=== PATIENT | female | born 2005 | race Caucasian/White ===

== ENCOUNTER 2024-04-01 13:02 | Emergency (ER) | payer OTHER, MEDICAID, SELFPAY ==
[2024-04-01 13:08] VITALS: BP 133/80; PULSE 73; RESP 14; TEMP 36.3; O2SAT 99; BMI 22.1
--- NOTE | 2024-04-01 13:39 | ED.FEMALEGU ---
HPI - Female Genitourinary <Justine Jacobo PA-C - Last Filed: 04/01/24 16:08> General Chief complaint: Urogenital-Female Stated complaint: Abd Pain, Dark Urine Time Seen by Provider: 04/01/24 13:16 Source: patient Mode of arrival: Ambulatory History of Present Illness HPI Narrative: 18yo F w/hx of anxiety, depression, PTSD, possible endometriosis, frequent UTIs, fentanyl use in remission, anemia, anorexia and bulimia presents with concern for multiple complaints. Patient states that she has been overall feeling fatigued for weeks especially the last 3 weeks. Had dark yellow sometimes very dark and smelly urine despite drinking copious water and a sensation of incomplete emptying after peeing that has been going on for few months. She states she sometimes has crampy pains in between her periods which he says are low down intermittent and not severe. She endorses long menses and is not currently on control, her last period ended 3 days ago. Patient did believe that she had a urinary tract infection states that she was worked up in the last month when she had anxiety with asthma and was given Ativan and ended up feeling she needed to be in a psych aguilar due to concern she would relapse and start using fentanyl again. At that time she says she was told that her urine did not show a UTI but that she ?just had kidney damage from 2 years of fentanyl use?. But was not told anything further about the state of her kidneys. Additionally patient states that she was previously told that her thyroid levels were abnormal but an additional lab needed to be checked to determine if she was hyperthyroid or not. She states this was never done. She also states that she has a problem with syncopal episodes where she passes out for about 2 minutes occasioanlly after exertion (often after sex) but does not think that she has any skipped beats or fast heart rate, chest pain or shortness of breath associated with this. She says this has not increased in frequency. It has been a problem for years. She endorses nausea but this has been chronic for her, states that she has been doing better with eating and has actually been gaining some weight recently. She also states that ever since she stopped using fentanyl she has had irregular stools the alternate between constipation and frequent loose stools. This has not changed recently. She denies fevers, chills, vomiting, watery diarrhea or other symptoms. She did not have insurance until recently and is working on getting established with a primary care provider. Related Data Previous Rx's Medication Instructions Recorded cefdinir 300 mg capsule 300 mg PO Q12H UTI with kidney 04/01/24 involvement 7 days #14 caps Allergies Allergy/AdvReac Type Severity Reaction Status Date / Time prednisone Allergy Intermediate Wheezing Verified 04/01/24 13:11 latex Allergy Unknown Verified 04/01/24 13:11 Review of Systems <Justine Jacobo PA-C - Last Filed: 04/01/24 16:08> Review of Systems Narrative: See HPI Patient History <Justine Jacobo PA-C - Last Filed: 04/01/24 16:08> tobacco type: vaping alcohol intake frequency: 0-2 drinks per day Substance Use Type: marijuana Exam <Justine Jacobo PA-C - Last Filed: 04/01/24 16:08> Narrative Exam Narrative: GENERAL: [18] year old patient appears stated age. Pleasant, Healthy-appearing, multiple tattoos. Well-developed patient, in mild distress. HEAD: Atraumatic. Normocephalic. EYES: Pupils equal round and reactive. Extraocular motions intact. No scleral icterus. No injection or drainage. ENT: Nose without bleeding, purulent drainage. Airway patent. NECK: Trachea midline. Non tender CARDIOVASCULAR: Regular rate and rhythm without murmurs, gallops, or rubs. RESPIRATORY: Clear to auscultation. Breath sounds equal bilaterally. No wheezes, rales, or rhonchi. GASTROINTESTINAL: There is left flank tenderness with palpation and prominent left flank tenderness with percussion. Abdomen soft, there is a left upper quadrant tenderness, mild suprapubic discomfort, otherwise non-tender, nondistended. EXTREMITIES: No edema or joint tenderness. BACK: Nontender without deformity or crepitance. Left CVA tenderness, otherwise No flank tenderness. NEURO: AOx3. SKIN: No rash or erythema of visible areas Initial Vital Signs Initial Vital Signs: Vital Signs Temperature 97.3 F L 04/01/24 13:08 Pulse Rate 73 04/01/24 13:08 Respiratory Rate 14 04/01/24 13:08 Blood Pressure 133/80 04/01/24 13:08 Pulse Oximetry 99 04/01/24 13:08 Oxygen Delivery Method Room Air 04/01/24 13:08 <John Lopez DO - Last Filed: 04/01/24 16:32> Initial Vital Signs Initial Vital Signs: Vital Signs Temperature 97.3 F L 04/01/24 13:08 Pulse Rate 73 04/01/24 13:08 Respiratory Rate 14 04/01/24 13:08 Blood Pressure 133/80 04/01/24 13:08 Pulse Oximetry 99 04/01/24 13:08 Oxygen Delivery Method Room Air 04/01/24 13:08 Course <Justine Jacobo PA-C - Last Filed: 04/01/24 16:08> Course Course Narrative: Spoke with social work who has not yet been able to see the patient, noting concern that the patient does need a PCP for follow up and would like her to get in to be seen soon rather than waiting up to 6 months. Social work is happy to work with her on this and would prefer to call her tomorrow, will leave a face sheet for the patient in social work program coordinator Kesha's box so she can contact the patient tomorrow regarding setting up a PCP appointment. [id number] Orders Ordered: ED Orders 04/01/24 13:36 Test Urine Stat Urinalysis and Microscopic Stat 04/01/24 13:41 CBC Auto Diff [Complete Blood Count AUTO DIFF] Stat CMP [Comprehensive Metabolic Panel] Stat Free T3, Triiodothyronine Free Stat Free T4, Direct Thyroxine Stat Lipase Stat TSH [Thyroid Stimulating Hormone] Stat 04/01/24 13:46 Consult to [facility] [place] - Professional Organizer Stat Discontinued Medications Ceftriaxone Sodium 1,000 mg/ (Sodium Chloride) 100 mls @ 200 mls/hr IV NOW ONE Stop: 04/01/24 14:33 Last Infusion: 04/01/24 15:15 Dose: Infused Documented By: Admin: 04/01/24 14:39 Dose: 200 mls/hr Documented By: SUSU Vital Signs Vital signs: Vital Signs - 8 hr 04/01/24 13:08 Temperature 97.3 F L Pulse Rate 73 Respiratory Rate 14 Blood Pressure 133/80 Pulse Oximetry 99 Oxygen Delivery Method Room Air <John Lopez DO - Last Filed: 04/01/24 16:32> Orders Ordered: ED Orders 04/01/24 13:36 Test Urine Stat Urinalysis and Microscopic Stat 04/01/24 13:41 CBC Auto Diff [Complete Blood Count AUTO DIFF] Stat CMP [Comprehensive Metabolic Panel] Stat Free T3, Triiodothyronine Free Stat Free T4, Direct Thyroxine Stat Lipase Stat TSH [Thyroid Stimulating Hormone] Stat 04/01/24 13:46 Consult to [facility] [place] - Professional Organizer Stat Discontinued Medications Ceftriaxone Sodium 1,000 mg/ (Sodium Chloride) 100 mls @ 200 mls/hr IV NOW ONE Stop: 04/01/24 14:33 Last Infusion: 04/01/24 15:15 Dose: Infused Documented By: Admin: 04/01/24 14:39 Dose: 200 mls/hr Documented By: SUSU Vital Signs Vital signs: Vital Signs - 8 hr 04/01/24 13:08 Temperature 97.3 F L Pulse Rate 73 Respiratory Rate 14 Blood Pressure 133/80 Pulse Oximetry 99 Oxygen Delivery Method Room Air MDM - Female Genitourinary <Justine Jacobo PA-C - Last Filed: 04/01/24 16:08> Differential Diagnosis Differential diagnosis: Likely urinary tract infection, cystitis and other (pyelonephritis, fatigue, flank pain, needs PCP) Medical Records Attestation: I reviewed the patient's medical records. Lab Data Attestation: I reviewed the patient's lab results. 04/01/24 13:41 04/01/24 13:41 Labs: Lab Results 04/01/24 04/01/24 Range/Units 13:36 13:41 WBC 5.9 (4.5-11.0) X10^3/uL RBC 4.58 (4.0-5.2) X10^6/uL Hgb 14.1 (12.0-16.0) g/dL Hct 41.4 (36-46) % MCV 90.5 (80-100) fL MCH 30.9 (26-34) PG MCHC 34.2 (30-36) % RDW 13.3 (11.6-14.8) % Plt Count 214 (150-400) X10^3/uL Neut % (Auto) 55.2 (50-75) % Lymph % (Auto) 35.9 (25-40) % Early % (Auto) 7.0 (3-14) % Eos % (Auto) 1.4 L (2-4) % Baso % (Auto) 0.5 (0-2) % Neut # (Auto) 3200 (3138-4553) /uL Lymph # (Auto) 2100 (9697-7453) /uL Early # (Auto) 400 (0-900) /uL Eos # (Auto) 100 (0-450) /uL Baso # (Auto) 0 (0-100) /uL Sodium 139 (137-145) mmol/L Potassium 4.1 (3.4-5.1) mmol/L Chloride 106 (98-107) mmol/L Carbon Dioxide 25 (22-32) mmol/L BUN 10 (7-17) mg/dL Creatinine 0.83 (0.52-1.04) mg/dL Estimated GFR > 60 (>60) mL/min BUN/Creatinine Ratio 12.0 (6-22) Glucose 90 (70-100) mg/dL Calcium 9.4 (8.4-10.2) mg/dL Total Bilirubin 0.9 (0.2-1.3) mg/dL AST 26 (14-36) IU/L ALT 12 (<35) IU/L Alkaline Phosphatase 66 (38-126) U/L Total Protein 7.6 (6.3-8.2) g/dL Albumin 4.8 (3.5-5.0) g/dL Globulin 2.8 (1.7-4.1) g/dL Albumin/Globulin Ratio 1.7 (1.0-2.8) Lipase 63 (23-300) U/L TSH 0.204 L (0.47-4.68) uIU/mL Free T4 1.05 (0.78-2.19) ng/dL Free T3 3.77 (2.77-5.27) pg/mL Urine Color Yellow Urine Appearance Sl cloudy Urine pH 8.0 (4.5-8.0) Ur Specific [place] 1.015 (1.000-1.035) Urine Protein Trace H (Negative) Urine Glucose (UA) Negative (Negative) g/dL Urine Ketones Negative (NEGATIVE) Urine Occult Blood Trace-intact (Negative) Urine Nitrate Negative (Negative) Urine Bilirubin Negative (NEGATIVE) Urine Urobilinogen 1.0 (0.2) E.U./dL Ur Leukocyte Esterase Trace H (NEGATIVE) Urine RBC None seen (0-5/HPF) Urine WBC 1-5/hpf (0-5/HPF) Ur Squamous Epith Cells 10-30 /hpf H (0-5/HPF) Urine Bacteria Many (>30) H (None) Ur Culture Indicated? Cult not indicated Vol Urine Centrifuged 10ml (spun) Urine Test Negative (Negative) MDM Narrative Medical decision making narrative: 18-year-old woman presents with multiple concerns including possible UTI, abdominal pains, concern for thyroid problem, fatigue, and chronic syncopal episodes after exertion. Patient was well-appearing today but her exam is concerning for flank tenderness on the left and left upper quadrant tenderness. Labs are obtained for further evaluation including CBC CMP lipase, TSH, urine , urine micro. Urine is consistent with a urinary tract infection, given patient's significant flank tenderness and some left upper quadrant tenderness I suspect her kidney is inflamed and she has had a smoldering kidney infection. Her labs otherwise look good, kidney function is normal appearing, no increased lipase no leukocytosis negative . Patient's TSH was low and Free T4 is in the normal range, T3 is pending at time of patient discharge, possibly patient has subclinical hyperthyroidism. She will need further evaluation for this but did discuss with the patient, do not anticipate starting her on any medications today from the emergency department but encouraged her to have close follow-up with PCP regarding her thyroid studies and possible additional evaluation such as ultrasound. 1 g ceftriaxone IV today in the emergency department for UTI with kidney involvement and patient is placed on cefdinir for 7 day course advised to follow up closely with PCP. Social work was consulted from the emergency department for assistance in helping the patient to obtain PCP/get scheduled. <John Lopez, - Last Filed: 04/01/24 16:32> Lab Data Labs: Lab Results 04/01/24 04/01/24 Range/Units 13:36 13:41 WBC 5.9 (4.5-11.0) X10^3/uL RBC 4.58 (4.0-5.2) X10^6/uL Hgb 14.1 (12.0-16.0) g/dL Hct 41.4 (36-46) % MCV 90.5 (80-100) fL MCH 30.9 (26-34) PG MCHC 34.2 (30-36) % RDW 13.3 (11.6-14.8) % Plt Count 214 (150-400) X10^3/uL Neut % (Auto) 55.2 (50-75) % Lymph % (Auto) 35.9 (25-40) % Early % (Auto) 7.0 (3-14) % Eos % (Auto) 1.4 L (2-4) % Baso % (Auto) 0.5 (0-2) % Neut # (Auto) 3200 (2803-3678) /uL Lymph # (Auto) 2100 (7652-1676) /uL Early # (Auto) 400 (0-900) /uL Eos # (Auto) 100 (0-450) /uL Baso # (Auto) 0 (0-100) /uL Sodium 139 (137-145) mmol/L Potassium 4.1 (3.4-5.1) mmol/L Chloride 106 (98-107) mmol/L Carbon Dioxide 25 (22-32) mmol/L BUN 10 (7-17) mg/dL Creatinine 0.83 (0.52-1.04) mg/dL Estimated GFR > 60 (>60) mL/min BUN/Creatinine Ratio 12.0 (6-22) Glucose 90 (70-100) mg/dL Calcium 9.4 (8.4-10.2) mg/dL Total Bilirubin 0.9 (0.2-1.3) mg/dL AST 26 (14-36) IU/L ALT 12 (<35) IU/L Alkaline Phosphatase 66 (38-126) U/L Total Protein 7.6 (6.3-8.2) g/dL Albumin 4.8 (3.5-5.0) g/dL Globulin 2.8 (1.7-4.1) g/dL Albumin/Globulin Ratio 1.7 (1.0-2.8) Lipase 63 (23-300) U/L TSH 0.204 L (0.47-4.68) uIU/mL Free T4 1.05 (0.78-2.19) ng/dL Free T3 3.77 (2.77-5.27) pg/mL Urine Color Yellow Urine Appearance Sl cloudy Urine pH 8.0 (4.5-8.0) Ur Specific [place] 1.015 (1.000-1.035) Urine Protein Trace H (Negative) Urine Glucose (UA) Negative (Negative) g/dL Urine Ketones Negative (NEGATIVE) Urine Occult Blood Trace-intact (Negative) Urine Nitrate Negative (Negative) Urine Bilirubin Negative (NEGATIVE) Urine Urobilinogen 1.0 (0.2) E.U./dL Ur Leukocyte Esterase Trace H (NEGATIVE) Urine RBC None seen (0-5/HPF) Urine WBC 1-5/hpf (0-5/HPF) Ur Squamous Epith Cells 10-30 /hpf H (0-5/HPF) Urine Bacteria Many (>30) H (None) Ur Culture Indicated? Cult not indicated Vol Urine Centrifuged 10ml (spun) Urine Test Negative (Negative) Discharge Plan Departure Patient Disposition: Home Clinical Impression: Infection of kidney, Abnormal laboratory test result Urinary tract infection Qualifiers: Urinary tract infection type: acute cystitis Hematuria presence: with hematuria Qualified Code(s): N30.01 - Acute cystitis with hematuria Activity Restrictions/Additional Instructions: *You have been diagnosed with [UTI affecting the kidney on the left, abnormal thyroid lab] *What to do: *Please continue to take your regular medications as directed. [1 ] New medication prescriptions sent to your pharmacy: [Cefdinir ] [ ] New medication written as a paper prescription [ ] No new medications given *Please follow up with your primary care provider in 2-3 days, call for an appointment. Let them know you were seen in the Emergency Department and that we ask that you be seen in follow up. We will electronically transmit a record of today's note if your PCP is in our system. Your urine today was consistent with a urinary tract infection your symptoms also fit with this you did have some flank tenderness over your left kidney and I suspect her kidney is affected. We gave you IV antibiotics today in the emergency department to jump start treatment for this but I also prescribed oral antibiotics that you should take for the next 7 days also. Hopefully this is improving her symptoms. Your other labs today looked good except your thyroid lab was low outside the normal range, this can sometimes indicate a subclinical thyroid disease or hyperthyroid. We got a secondary lab back called T4 this was in the normal range. We are still waiting on an additional lab for further evaluation of your thyroid called T3. With all of these labs combined it will be more easy to determine what could potentially be going on with your thyroid and whether or not you should have medication for it. Social work was consulted today to discuss obtaining a PCP with you however they are going to give you a call tomorrow when they are here again and work with you on setting up a new PCP and appointment. This is very important as you will want to talk to your PCP about any potential additional studies for your thyroid such as possibly a thyroid ultrasound and whether or not you should be on any medication for your thyroid. You should also follow up with them regarding her other symptoms and make sure your UTI symptoms has have resolved. I hope you are feeling better soon. Please make sure you get rechecked or seek further evaluation if you have new or concerning symptoms. *If you do not have a primary care provider please contact the [facility] Resource line at [phone]. They will ask some questions about your medical history and help get you set up with a doctor in the community. *Return to Emergency Department if you should have any new, worsening or concerning symptoms, such as [fever greater than 101 F, shaking chills, worsening pain, persistent vomiting or other bothersome symptoms] Prescriptions: New cefdinir 300 mg capsule 300 mg PO Q12H 7 Days Qty: 14 0RF Stand Alone Forms: Patient Portal/API ED Sign-out <John Lopez, DO - Last Filed: 04/01/24 16:32> Cosign ED Attending Cosignature Attestation: Dr Lopez Co-Sign Statement: I was available for consultation during this patient's emergency department visit. This chart is signed by myself for administrative purposes only. I did not have direct contact with this patient during this visit. They were seen independently by the APC.
[2024-04-01 13:57] LABS: Add Manual Diff / Slide Review NO; Basophils Absolute Auto 0 /uL (0-100); Basophils Percent Auto 0.5 % (0-2); Eosinophils Absolute Auto 100 /uL (0-450); Eosinophils Percent Auto 1.4 % (2-4); Hematocrit 41.4 % (36-46); Hemoglobin 14.1 g/dL (12.0-16.0); Lymphocytes Absolute Auto 2100 /uL (1100-4500); Lymphocytes Percent Auto 35.9 % (25-40); Mean Corpuscular HGB Conc 34.2 % (30-36); Mean Corpuscular Hemoglobin 30.9 PG (26-34); Mean Corpuscular Volume 90.5 fL (80-100); Monocytes Absolute Auto 400 /uL (0-900); Neutrophils Absolute Auto 3200 /uL (1500-7000); Neutrophils Percent Auto 55.2 % (50-75); Platelet Count 214 X10^3/uL (150-400); Red Blood Cell Count 4.58 X10^6/uL (4.0-5.2); Red Cell Distribution Width 13.3 % (11.6-14.8); White Blood Cell Count 5.9 X10^3/uL (4.5-11.0)
[2024-04-01 14:10] LABS: Alanine Aminotransferase 12 IU/L (<35); Albumin 4.8 g/dL (3.5-5.0); Albumin Globulin Ratio 1.7 (1.0-2.8); Alkaline Phosphatase 66 U/L (38-126); Aspartate Aminotransferase 26 IU/L (14-36); Bilirubin Total 0.9 mg/dL (0.2-1.3); Blood Urea Nitrogen 10 mg/dL (7-17); Calcium 9.4 mg/dL (8.4-10.2); Carbon Dioxide 25 mmol/L (22-32); Chloride 106 mmol/L (98-107); Estimated Glomerular Filt Rate > 60 mL/min (>60); Globulin 2.8 g/dL (1.7-4.1); Glucose 90 mg/dL (70-100); HEMOLYSIS < 15 (0-50); Lipase 63 U/L (23-300); Potassium 4.1 mmol/L (3.4-5.1); Sodium 139 mmol/L (137-145); Total Protein 7.6 g/dL (6.3-8.2)
[2024-04-01 14:22] LABS: Appearance Urine UA SL CLOUDY; Bilirubin Urine UA NEGATIVE (NEGATIVE); Color Urine UA YELLOW; Glucose Urine UA NEGATIVE (Negative); Ketones Urine UA NEGATIVE (NEGATIVE); Leukocyte Esterase Urine UA TRACE (NEGATIVE); Nitrite Urine UA NEGATIVE (Negative); Occult Blood Urine UA TRACE-INTACT (Negative); Protein Urine UA TRACE (Negative); Specific Gravity Urine UA 1.015 (1.000-1.035)
[2024-04-01 14:24] LABS: Pregnancy Test Urine Negative (Negative)
[2024-04-01 14:30] LABS: Bacteria Urine Many (>30); RBC Urine None Seen (0-5/HPF); Urine Volume 10mL (spun); WBC Urine 1-5/HPF (0-5/HPF)
[2024-04-01 14:31] LABS: Culture Indicated Urine Cult Not Indicated; Squamous Epithelial Cell Urine 10-30 /HPF (0-5/HPF)
[2024-04-01] MEDS: cefTRIAXone 1,000 MG in SODIUM CHLORIDE 0.9% 100 ML 200 MG IV (14:39)
[2024-04-01 14:40] LABS: Thyroid Stimulating Hormone 0.204 uIU/mL (0.47-4.68)
[2024-04-01 15:38] LABS: Free T4, Direct Thyroxine 1.05 ng/dL (0.78-2.19)
[2024-04-01 16:18] LABS: Free T3, Triiodothyronine Free 3.77 pg/mL (2.77-5.27)
[2024-04-01 16:30] VITALS: BP 111/76; PULSE 77; RESP 16; O2SAT 98
--- NOTE | 2024-04-07 16:34 | CM.SWNOTE ---
ED TRUCK LEASING MANAGER Note: Patient is a 18yo female, resident of [place], presented to the ED on 04/01/2024 with abdominal pain. ED TRUCK LEASING MANAGER was consulted to follow up with patient via phone call in assisting with establishing with a PCP. ED TRUCK LEASING MANAGER called pt on 04/02/2024 and discussed pt needs. Per patient, pt has been attempting to establish with a patient at the [facility] (preference for [facility]) but has not been able to make contact. ED TRUCK LEASING MANAGER noted that she will attempt to connect on pt's behalf, pt consented to this plan. ED TRUCK LEASING MANAGER attempted multiple times to connect with the clinic, leaving voice messages with a request to return call (not leaving pt name). ED TRUCK LEASING MANAGER received a voice message from hospice clinical marketer on Thursday, 04/05. ED TRUCK LEASING MANAGER attempted to connect again but could not connect. ED TRUCK LEASING MANAGER called pt on 04/07 to reconvene about plans to establish a PCP. Pt noted that she has plans to move to [place] in the near future so she would actually prefer to establish with a PCP there. ED TRUCK LEASING MANAGER compiled list of PCPs in [place] who are currently accepting new patients, forwarded to pt's email per pt request (email: [email or web address]). Plan: Pt to establish care in [place] as soon as available. GERONIMO De La O
== END 2024-04-01 16:30 | disposition home or self-care (01) ==
PROVIDERS: Emergency Provider Student in an Organized Health Care Education/Training Program
DX: N30.01 Acute cystitis with hematuria (principal); N15.9 Renal tubulo-interstitial disease, unspecified; R89.9 Unspecified abnormal finding in specimens from other organs, systems and tissues
CPT/HCPCS: 36415; 80053; 81001; 81025; 83690; 84439; 84443; 84481; 85025; 96365; 99284; J0696